=== PATIENT | male | born 1985 | race Caucasian/White ===

== ENCOUNTER 2018-06-03 14:10 | Emergency (ER) | payer OTHER, SELFPAY ==
[2018-06-03 14:37] VITALS: BP 134/76; PULSE 78; RESP 12; TEMP 37.3; O2SAT 99
--- NOTE | 2018-06-03 16:04 | ED.GENADUL_ITS ---
Discharge Plan Disposition Patient Disposition: HOME Condition: Stable Discharge Details Chief Complaint: DentalOral Clinical Impression: Infected dental caries Primary Care Provider: Unknown,Unknown ED Provider: Mayela Barajas Home Meds and New Rx's Prescriptions: New clindamycin HCl 150 mg capsule 450 mg PO TID 7 Days Qty: 63 RF: 0 Continued naproxen 375 MG tablet,delayed release (DR/EC) 375 mg PO BID Qty: 14 RF: 0 Discharge Instructions Instructions: Dental Caries (ED) Additional Instructions: Take the antibiotics until finished. Call a local dentist to schedule follow-up appointment for reevaluation and poss ible dental extraction. Return immediately to the emergency department any worsening or new concerning symptoms. Discharge Data Discharge Physician: Mayela Barajas Medical Decision Making 33-year-old male who presents with chronic left upper dental pain for the past few months, worse this morning. Admits to frequent dental fractures and caries. Does not have a dentist. No recent antibiotics. Extensive dental caries and poor dentition throughout. Tooth missing with base of tooth decayed and left upper jaw. No dental abscess noted. No trismus, no drooling, no submandibular swelling or evidence of Ion's angina, no lymphadenopathy. Patient allergic to penicillin, unsure of reaction. Will send home with prescription for clindamycin for early dental infection. Patient instructed to alternate Tylenol and Motrin. Patient also given a list of local dentists to schedule follow-up appointment for evaluation. He is instructed return at any time if worse. HPI General Mode of arrival: ambulatory . Date/Time Provider Initiated Documentation: 06/03/18 15:27 . Limitations to Documentation: no limitations . Information obtained by: patient . HPI Narrative: Patient is a 33-year-old male who presents with left upper tooth pain for several months, worse this morning. Patient admits to history of dental fracture. He denies any known injury. Patient denies any known fever. Patient states he does not a primary care doctor or dentist. He denies any recent antibiotics. Related Data Home Medications Medication Instructions Recorded Confirmed naproxen 375 mg PO BID #14 tablet. 08/24/17 clindamycin HCl 450 mg PO TID 7 Days #63 cap 06/03/18 Previous Rx's Medication Instructions Recorded naproxen 375 mg PO BID #14 tablet. 08/24/17 clindamycin HCl 450 mg PO TID 7 Days #63 cap 06/03/18 Allergies Allergy/AdvReac Type Severity Reaction Status Date / Time Penicillins Allergy Unverified 06/03/18 14:40 General Stated Complaint: DentalOral [id number]: 5 Review of Systems Review of Systems All systems reviewed & are unremarkable except as noted in HPI and below Constitutional Reports as per HPI, Denies chills and Denies fever(s) Eyes Denies blurry vision ENT Reports dental pain, Denies dizziness, Denies sore throat and Denies throat swelling Cardiovascular Denies chest pain and Denies dyspnea Respiratory Denies cough and Denies dyspnea Gastrointestinal Denies abdominal pain, Denies diarrhea and Denies vomiting Genitourinary Denies hematuria and Denies dysuria Musculoskeletal Denies back pain and Denies numbness Integumentary/Breasts Denies lesions and Denies rash Neurologic Denies dizziness, Denies focal weakness and Denies numbness Allergic/Immunologic Denies throat swelling PFSH Medical History No significant past medical history (Acute) Surgical History No significant past surgical history (Acute) Social History Smoking and Tabacco status: Current every day alcohol intake: current alcohol intake frequency: a few times a month substance use type: does not use Exam Const General: cooperative, healthy appearing and no acute distress HENMT Head: normal to inspection Ears: hearing grossly normal bilaterally and TM's normal bilaterally General nose exam: external nose normal Face and sinus: normal facial exam Mouth: oral mucosae normal Teeth and gingiva: caries and poor dentition Teeth image: 1. Teeth missing. Base of tooth present, appears decayed. Surrounding edema, erythema and tenderness. No abscess noted. Throat: posterior oropharynx normal Eyes General: appearance normal, both eyes and all related structures Neck Neck: normal visual inspection, no lymphadenopathy, no meningeal signs, no anterior neck swelling and No submandibular swelling Resp Effort & Inspection: normal respiratory effort and able to speak in complete sentences Cardio Rate: regular rate Skin General skin exam: no rashes or lesions noted Neuro General: alert, awake and oriented x3 Motor: muscle tone normal throughout Extrem General: normal to inspection and full ROM Psych Appearance: grossly normal Affect: normal affect Course Vital Signs Temperature 99.1 F 06/03/18 14:37 Pulse 78 06/03/18 14:37 Respiratory Rate 12 06/03/18 14:37 Blood Pressure 134/76 06/03/18 14:37 Pulse Oximetry 99 06/03/18 14:37 Temperature 99.1 F 06/03/18 14:37 Temperature Source Temporal Artery Scan 06/03/18 14:37 Pulse 78 06/03/18 14:37 Respiratory Rate 12 06/03/18 14:37 Blood Pressure 134/76 06/03/18 14:37 Blood Pressure Position Sitting 06/03/18 14:37 Pulse Oximetry 99 06/03/18 14:37 Oxygen Delivery Method Room Air 06/03/18 14:37 Oxygen Flow Rate 0 06/03/18 14:37 Pain Level 8 06/03/18 14:37
== END 2018-06-03 16:25 | disposition home or self-care (01) ==
PROVIDERS: Emergency Provider Physician Assistant
DX: K02.9 Dental caries, unspecified (principal); K04.7 Periapical abscess without sinus; F17.210 Nicotine dependence, cigarettes, uncomplicated
CPT/HCPCS: 99283